=== PATIENT | female | born 1945 | race Caucasian/White ===

== ENCOUNTER 2020-04-10 19:02 | Inpatient (IN) | payer OTHER ==
[~2020-04-10] VITALS: Ht 154.9 cm; Wt 68.0 kg
[2020-04-10] MEDS ORDERED: NORVASC5 MG (19:14)
[2020-04-10] MEDS ORDERED: REMDESIVIR100 MG/20 (19:15)
[2020-04-10] MEDS ORDERED: RELAFEN DS1000 MG (19:15)
[2020-04-10] MEDS ORDERED: CYMBALTA60 MG (19:15)
[2020-04-10] MEDS ORDERED: NEURONTIN600 M1 PO (19:16)
[2020-04-15] MEDS ORDERED: PERCOCET 5-3251 EACH PO (12:55)
[2020-04-15] MEDS ORDERED: ELIQUIS2.5 MG PO (12:55)
== END 2020-04-15 16:11 | DRG 481 ==
LOC: ER 19:02 → SURG 04-11 07:52
PROVIDERS: ADMIT Orthopaedic Surgery; ATTEND Orthopaedic Surgery
PROC: 0QS706Z Reposition Left Upper Femur with Intramedullary Internal Fixation Device, Open Approach (ICD-10-PCS; principal; 2020-04-12 13:00)
DX: S72.142A Displaced intertrochanteric fracture of left femur, initial encounter for closed fracture (principal); D62 Acute posthemorrhagic anemia; Z20.828 Contact with and (suspected) exposure to other viral communicable diseases; I10 Essential (primary) hypertension; W18.39XA Other fall on same level, initial encounter

== ENCOUNTER 2022-06-10 22:13 | Emergency (ER) | payer OTHER ==
[~2022-06-10] VITALS: Ht 160 cm; Wt 61.2 kg
[~2022-06-10 22:13] MED LIST: CYMBALTA60 MG; ELIQUIS2.5 MG PO; NEURONTIN600 M1 PO; NORVASC5 MG; PERCOCET 5-3251 EACH PO; RELAFEN DS1000 MG; REMDESIVIR100 MG/20
== END 2022-06-11 08:40 ==
LOC: ER 22:13
DX: T81.42XA Infection following a procedure, deep incisional surgical site, initial encounter (principal); I10 Essential (primary) hypertension; Z20.822 Contact with and (suspected) exposure to COVID-19

== ENCOUNTER 2023-07-16 05:52 | Day surgery (SDC) | payer OTHER | END 2023-07-16 12:20 | disposition home or self-care (01) | LOC: AMB-ENDOS 05:52 | PROVIDERS: ATTEND Surgery | DX: R10.9 Unspecified abdominal pain (principal); R19.4 Change in bowel habit; K57.30 Diverticulosis of large intestine without perforation or abscess without bleeding; K64.8 Other hemorrhoids; Z20.822 Contact with and (suspected) exposure to COVID-19 ==

== ENCOUNTER 2024-08-25 06:24 | Day surgery (SDC) | payer OTHER ==
[2024-08-25] MEDS ORDERED: MIDAZOLAM HCL 2 MG/2 ML VIAL IV ONE (11:15)
[2024-08-25] MEDS ORDERED: DIPHENHYDRAMINE HCL 50 MG/ML VIAL 1ML IV ONE (11:15)
[2024-08-25] MEDS ORDERED: fentaNYL CITRATE 50 MCG/ML AMPUL IV ONE (11:15)
== END 2024-08-25 12:35 | disposition home or self-care (01) ==
LOC: AMB-ENDOS 06:24
PROVIDERS: ATTEND Surgery
DX: K21.9 Gastro-esophageal reflux disease without esophagitis (principal); K44.9 Diaphragmatic hernia without obstruction or gangrene; R10.13 Epigastric pain; K29.80 Duodenitis without bleeding; K31.7 Polyp of stomach and duodenum